=== PATIENT | female | born 1980 | race Caucasian/White ===

== ENCOUNTER 2024-07-03 10:04 | Emergency (ER) | payer MEDICAID ==
[~2024-07-03] VITALS: Ht 154.9 cm; Wt 80.3 kg
[2024-07-03 10:08] VITALS: BP 109/61; PULSE 89; RESP 15; TEMP 98.6; O2SAT 96
== END 2024-07-03 10:52 | disposition home or self-care (01) ==
LOC: MED 10:04
DX: M76.9 Unspecified enthesopathy, lower limb, excluding foot (principal)
CPT/HCPCS: 99281